=== PATIENT | male | born 1970 | race Caucasian/White ===

== ENCOUNTER 2018-01-29 16:05 | Emergency (ER) | payer OTHER ==
[~2018-01-29] VITALS: Ht 167.6 cm; Wt 96.3 kg
[2018-01-29 16:11] VITALS: TEMP 36.5; Ht 167.6 cm; Wt 96.3 kg
--- NOTE | 2018-01-29 16:29 | EMERGENCY ROOM VISIT NOTE ---
History Report prepared by Jackie: Harris Jeffers Under the Supervision of: Dr. Nate Burr M.D. First contact with patient: 16:15 Chief Complaint: CHEST PAIN Stated Complaint: EXTREME PAIN UNDER RIB CAGE, LT SIDE,TAKING BREATH History of Present Illness The patient is a 47 year old male who presents to the Emergency Room with complaints of left-sided chest pain that began 20 minutes ago. He rates his pain an 8/10 in severity when it was at its worst, but it is much more mild currently. He denies any diagnosed chronic medical history and does not take any medications. 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 At that moment he felt diaphoretic and the pain took his breath away. He denies any current fevers, diaphoresis, shortness of breath, nausea, vomiting, abdominal pain, diarrhea, weakness, numbness, or rash. He denies any jaw, arm, or leg pain. He denies any trauma or leg swelling. His pain is not exacerbated with breathing. He notes that his pain is much more dull currently. He denies any known medication allergies. This has never happened before. He denies any previous abdominal surgeries. He states that recently he has been having some trouble with his bowels, but nothing acutely. Source of History: patient Onset: 20 minutes ago Position: chest (left) Symptom Intensity: 8/10 Quality: sharp Timing: waxes/wanes Associated Symptoms: + diaphoresis (he felt this way when the pain was at its worst), No fevers, No SOB, No nausea, No vomiting, No abdominal pain, No diarrhea, No weakness, No numbness, No rash Review of Systems See HPI for pertinent positives & negatives. A total of 10 systems reviewed and were otherwise negative. Past Medical & Surgical No known chronic medical history Old medical records were reviewed. Nurse's notes were reviewed and I agree with. Family History FH: heart disease Social History Smoking Status: Never Smoker Smokeless Tobacco Use: No Alcohol Use: none Drug Use: none Marital Status: Occupation Status: employed Allergies Coded Allergies: No Known Allergies (Unverified , 11/29/15) Physical Exam Vital Signs Date Time Temp Pulse Resp B/P (MAP) Pulse Ox O2 Delivery O2 Flow Rate FiO2 01/29/18 19:14 80 16 154/102 95 2/28/18 17:41 77 18 147/104 95 Room Air 01/29/18 17:24 85 01/29/18 16:50 Room Air 01/29/18 16:11 36.5 101 18 170/122 96 Room Air Physical Exam General: Non-ill appearing middle-aged male in no acute distress, but is mildly anxious. HEENT: Normal cephalic atraumatic. Pupils are equal round and reactive to light. Extraocular movements are intact. Oropharynx is pink with moist mucous membranes. No swelling of the mouth lips or tongue. Neck: Supple with a midline trachea. No meningeal signs or stiffness, no JVD or bruits. No Stridor. Chest: Clear to auscultation bilaterally. No wheezes or rhonchi. No increased work of breathing. Minimally tender to just under the left lower rib anteriorly. Heart: regular rate and rhythm. Abdomen: Soft nontender, nondistended without rebound guarding or rigidity. Extremities: No cyanosis clubbing or edema. No calf tenderness or assymetry Spine/Back. Non tender to palpation. No CVA tenderness Skin: Good turgor without rashes. Neurologic exam: Cranial nerves two through 12 are intact. Motor and sensation are intact and symmetrical throughout. Medical Decision & Procedures ER Provider Diagnostic Interpretation: Radiology results as stated below per my review and radiologist interpretation: CHEST ONE VIEW PORTABLE CLINICAL HISTORY: Chest pain. COMPARISON STUDY: Chest radiograph June 20, 2011. FINDINGS: Patient is rotated. No pneumothorax or pleural effusion is noted. There is no evidence for pulmonary edema. No consolidation is identified. Lung volumes are at the lower limits of normal. Mild cardiomegaly is noted. IMPRESSION: 1. No acute cardiopulmonary findings. 2. Mild cardiomegaly. Electronically signed by: Renato Copeland M.D. 01/29/2018 4:39 PM Dictated Date/Time: 01/29/2018 4:38 PM Laboratory Results 01/29/18 16:45 Red Blood Count 4.89, Mean Corpuscular Volume 86.3, Mean Corpuscular Hemoglobin 32.1, Mean Corpuscular Hemoglobin Concent 37.2, Mean Platelet Volume 9.0, Neutrophils (%) (Auto) 47.3, Lymphocytes (%) (Auto) 39.9, Monocytes (%) (Auto) 9.1, Eosinophils (%) (Auto) 2.9, Basophils (%) (Auto) 0.6, Neutrophils # (Auto) 2.27, Lymphocytes # (Auto) 1.92, Monocytes # (Auto) 0.44, Eosinophils # (Auto) 0.14, Basophils # (Auto) 0.03 01/29/18 16:45 Test 01/29/18 16:45 01/29/18 18:21 White Blood Count 4.81 K/uL (4.8-10.8) Red Blood Count 4.89 M/uL (4.7-6.1) Hemoglobin 15.7 g/dL (14.0-18.0) Hematocrit 42.2 % (42-52) Mean Corpuscular Volume 86.3 fL (80-100) Mean Corpuscular Hemoglobin 32.1 pg (25-34) Mean Corpuscular Hemoglobin Concent 37.2 g/dl (32-36) Platelet Count 171 K/uL (130-400) Mean Platelet Volume 9.0 fL (7.4-10.4) Neutrophils (%) (Auto) 47.3 % Lymphocytes (%) (Auto) 39.9 % Monocytes (%) (Auto) 9.1 % Eosinophils (%) (Auto) 2.9 % Basophils (%) (Auto) 0.6 % Neutrophils # (Auto) 2.27 K/uL (1.4-6.5) Lymphocytes # (Auto) 1.92 K/uL (1.2-3.4) Monocytes # (Auto) 0.44 K/uL (0.11-0.59) Eosinophils # (Auto) 0.14 K/uL (0-0.5) Basophils # (Auto) 0.03 K/uL (0-0.2) RDW Standard Deviation 37.9 fL (36.4-46.3) RDW Coefficient of Variation 12.1 % (11.5-14.5) Immature Granulocyte % (Auto) 0.2 % Immature Granulocyte # (Auto) 0.01 K/uL (0.00-0.02) D-Dimer 210 ug/L FEU (0-500) Anion Gap 6.0 mmol/L (3-11) Est Creatinine Clear Calc Drug Dose 87.6 ml/min Estimated GFR () 89.5 Estimated GFR (Non- 77.3 BUN/Creatinine Ratio 10.0 (10-20) Calcium Level 8.2 mg/dl (8.5-10.1) Total Bilirubin 0.6 mg/dl (0.2-1) Direct Bilirubin 0.2 mg/dl (0-0.2) Aspartate Amino Transf (AST/SGOT) 38 U/L (15-37) Alanine Aminotransferase (ALT/SGPT) 81 U/L (12-78) Alkaline Phosphatase 71 U/L (45-117) Total Creatine Kinase 92 U/L (39-308) Creatine Kinase MB < 0.5 ng/ml (0.5-3.6) Creatine Kinase MB Ratio (0-3.0) Total Protein 7.6 gm/dl (6.4-8.2) Albumin 3.9 gm/dl (3.4-5.0) Lipase 102 U/L (73-393) Thyroid Stimulating Hormone (TSH) 0.814 uIu/ml (0.300-4.500) Bedside Troponin I < 0.030 ng/ml (0-0.045) Laboratory studies as stated above per my review. Medications Administered Medications (Trade) Dose Ordered Sig/Devin Route Start Time Stop Time Status Last Admin Dose Admin Aspirin (Aspirin Chew) 324 mg NOW STAT PO 01/29/18 16:27 01/29/18 16:29 DC 01/29/18 16:38 324 MG ECG Per My Interpretation Indication: chest pain Rate (beats per minute): 93 Rhythm: normal sinus Findings: no acute ischemic change, other (No PVC, mildly prolonged QT) Comparison ECG Date: 20 June 2011 Change: no significant change Change: Second ECG: NSR 76, no ischemic changes or PVCs, no change from earlier ED Course 1615: Past medical records reviewed. The patient was evaluated in room B3B, and a complete history and physical examination were performed. 1627: Ordered Aspirin Chew 324 mg PO 1850: Upon reevaluation, the patient is resting. I discussed the results and treatment plan with him. He verbalized agreement of the treatment plan. The patient was discharged home. Medical Decision Differentials include, but are not limited to; cardiac disease, arrhythmia, musculoskeletal pain, GERD, abdominal process, and electrolyte or metabolic abnormality. This patient comes in as described above he had sudden onset of sharp chest pain just under his left anterior ribs. It is an one focal area. He might have gotten short of breath with this as well. There is no radiation to the arm neck or back. No history of similar or cardiac history. he has had some high blood pressure lately but he has not been seen by or treated for this. EKG was obtained which shows no acute ischemic changes or ectopy a second EKG shows no change compared EKG #1. Troponin is negative. I repeated troponin 90 minutes later was also negative. Chest x-ray was unremarkable. D-dimer was unremarkable and in a low pretest probability makes PE highly unlikely. The chest x-ray does not show congestive heart failure, pneumonia ,or pneumothorax. There is no acute electrode metabolic abnormalities. I talked the patient at length and at this point, I do not think it is likely cardiac. it may have originated from the abdomen. I told him we could admit him to do further workup and evaluation or he can follow-up with his regular doctor and have this done as an outpatient. He would prefer that. I encouraged him to do so and he may need blood pressure treatment as well in the near future he is going to see his doctor tomorrow. He was encouraged to return to the ER if: increasing pain , recurrence of symptoms, shortness of breath, any new problems or concerns. He was happy with the plan and discharged to home. Medication Reconcilliation Current Medication List: was personally reviewed by me Blood Pressure Screening Patient's blood pressure: Elevated blood pressure Blood pressure disposition: Referred to PCP Impression Primary Impression: Left sided chest pain Scribe Attestation The scribe's documentation has been prepared under my direction and personally reviewed by me in its entirety. I confirm that the note above accurately reflects all work, treatment, procedures, and medical decision making performed by me. Departure Information Dispostion Home / Self-Care Referrals Hitesh Roque M.D. (PCP) Forms Call Back Authorization, HOME CARE DOCUMENTATION FORM, IMPORTANT VISIT INFORMATION Patient Instructions My [facility] [place] Additional Instructions Rest. Drink plenty of fluids. Return if: Increasing pain or worsening symptoms or recurrence of symptoms, any new problems or concerns Follow-up with your doctor in the next 1-2 days for recheck and have your blood pressure rechecked. You may ultimately need to be started on medications for your blood pressure
[2018-01-29] MEDS: ASPIRIN 81 MG CHEW PO STA (16:38)
--- NOTE | 2018-01-29 16:40 | DIAGNOSTIC IMAGING REPORT ---
CHEST ONE VIEW PORTABLE CLINICAL HISTORY: Chest pain. COMPARISON STUDY: Chest radiograph June 20, 2011. FINDINGS: Patient is rotated. No pneumothorax or pleural effusion is noted. There is no evidence for pulmonary edema. No consolidation is identified. Lung volumes are at the lower limits of normal. Mild cardiomegaly is noted. IMPRESSION: 1. No acute cardiopulmonary findings. 2. Mild cardiomegaly. Electronically signed by: Renato Copeland M.D. 01/29/2018 4:39 PM Dictated Date/Time: 01/29/2018 4:38 PM
[2018-01-29 16:59] LABS: BASO % 0.6 %; BASO ABS # 0.03 K/uL (0-0.2); EOS % 2.9 %; EOS ABS # 0.14 K/uL (0-0.5); HEMATOCRIT 42.2 % (42-52); HEMOGLOBIN 15.7 g/dL (14.0-18.0); IG# 0.01 K/uL (0.00-0.02); LYMPH % 39.9 %; LYMPH ABS # 1.92 K/uL (1.2-3.4); MEAN CELL VOLUME 86.3 fL (80-100); MEAN CORPUSCULAR HEMOGLOBIN 32.1 pg (25-34); MEAN CORPUSCULAR HGB CONC 37.2 g/dl (32-36); MONO % 9.1 %; MONO ABS # 0.44 K/uL (0.11-0.59); NEUT % 47.3 %; NEUT ABS # 2.27 K/uL (1.4-6.5); PLATELET COUNT 171 K/uL (130-400); RED CELL DISTRIBUTION WIDTH CV 12.1 % (11.5-14.5); RED CELL DISTRIBUTION WIDTH SD 37.9 fL (36.4-46.3); WHITE BLOOD COUNT 4.81 K/uL (4.8-10.8)
[2018-01-29 17:27] LABS: ALBUMIN 3.9 gm/dl (3.4-5.0); ALT/SGPT 81 U/L (12-78); BLOOD UREA NITROGEN 11 mg/dl (7-18); CALCIUM 8.2 mg/dl (8.5-10.1); CARBON DIOXIDE 28 mmol/L (21-32); CREATININE 1.12 mg/dl (0.60-1.40); GLUCOSE 87 mg/dl (70-99); LIPASE 102 U/L (73-393); POTASSIUM 3.5 mmol/L (3.5-5.1); SODIUM 140 mmol/L (136-145)
[2018-01-29 17:38] LABS: ALKALINE PHOSPHATASE 71 U/L (45-117); AST/SGOT 38 U/L (15-37); CKMB < 0.5 ng/ml (0.5-3.6); TOTAL PROTEIN 7.6 gm/dl (6.4-8.2)
[2018-01-29 19:14] VITALS: BP 154/102; PULSE 80; O2SAT 95
== END 2018-01-29 19:00 | disposition home or self-care (01) ==
LOC: C.EDB 16:07
DX: R07.9 Chest pain, unspecified (principal); Z82.49 Family history of ischemic heart disease and other diseases of the circulatory system

== ENCOUNTER → 2018-02-10 | Outpatient (CLI) | payer OTHER ==
[2018-02-10 18:29] LABS: BLOOD UREA NITROGEN 15 mg/dl (7-18); CALCIUM 8.8 mg/dl (8.5-10.1); CARBON DIOXIDE 30 mmol/L (21-32); GLUCOSE 93 mg/dl (70-99); POTASSIUM 3.7 mmol/L (3.5-5.1); SODIUM 140 mmol/L (136-145)
== END | disposition home or self-care (01) ==
LOC: C.LAB 16:41
PROVIDERS: ATTEND Internal Medicine
DX: I10 Essential (primary) hypertension (principal)

== ENCOUNTER → 2018-03-19 | Outpatient (CLI) | payer OTHER ==
[2018-03-19 15:05] LABS: BLOOD UREA NITROGEN 15 mg/dl (7-18); CALCIUM 8.7 mg/dl (8.5-10.1); CARBON DIOXIDE 28 mmol/L (21-32); CREATININE 1.07 mg/dl (0.60-1.40); GLUCOSE 88 mg/dl (70-99); POTASSIUM 3.9 mmol/L (3.5-5.1); SODIUM 139 mmol/L (136-145)
[2018-03-19 15:10] LABS: CHOLESTEROL 141 mg/dl (0-200); LDL CHOLESTEROL CALCULATED 85 mg/dl
== END | disposition home or self-care (01) ==
LOC: C.LAB 12:17
PROVIDERS: ATTEND Internal Medicine
DX: I10 Essential (primary) hypertension (principal)